=== PATIENT | female | born 1960 | race African-American/Black ===

== ENCOUNTER 2018-07-01 03:25 | Inpatient (IN) | payer MEDICAID ==
[~2018-07-01] VITALS: Ht 157.5 cm; Wt 99.3 kg
[2018-07-01] VITALS (7 sets, daily range): BP systolic 123–183; BP diastolic 63–90
[2018-07-01] MEDS ORDERED: ALBUTEROL (0.083%) 2.5MG/3ML NEB HHN STA ×2 (03:44→05:38)
[2018-07-01] MEDS ORDERED: IPRATROPIUM BROMIDE (0.02%) 0.5MG/2.5ML NEB HHN STA ×2 (03:44→05:38)
[2018-07-01] MEDS ORDERED: FUROSEMIDE 40MG/4ML VIAL IV ONE (03:45)
[2018-07-01] MEDS ORDERED: NITROGLYCERIN OINT 1GM/INCH UDPKT TD ONE (03:45)
[2018-07-01 04:27] LABS: CHLORIDE 105 mEq/L (98-107)
[2018-07-01 05:00] LABS: BASOPHILS % 0.6 % (0.0-2.0); LYMPHOCYTES % 51.4 % (20.0-50.0); MEAN CORPUSCULAR HEMOGLOBIN 21.5 pg (28.0-32.0); MEAN CORPUSCULAR VOLUME 73.7 fL (81.0-99.0); MEAN PLATELET VOLUME 8.2 fl (7.4-10.4); MONOCYTES % 7.3 % (2.0-8.0); NEUTROPHILS % 39.7 % (40.0-76.0); PLATELET 143 x1000/uL (130-400); RED BLOOD CELL COUNT 2.49 mill/uL (4.2-5.4); RED CELL DISTRIBUTION WIDTH 23.1 % (11.6-14.6)
[2018-07-01 05:40] LABS: HEMATOCRIT. 18.4 % (36.0-48.0); HEMOGLOBIN. 5.4 g/dL (12.0-16.0)
[2018-07-01] MEDS ORDERED: HYDROCODONE/ACETAMINOPHEN 5/325MG TABLET PO NR (06:00)
[2018-07-01 07:29] LABS: PLATELET ESTIMATE NORMAL
[2018-07-01] MEDS ORDERED: CLONIDINE 0.1MG TABLET PO PRN (12:45)
[2018-07-01] MEDS ORDERED: MAGNESIUM/ALUMINUM HYDROXIDE/SIMETHICONE 30ML UDC PO PRN (12:45)
[2018-07-01] MEDS ORDERED: ACETAMINOPHEN 325MG TABLET PO PRN (12:45)
[2018-07-01] MEDS ORDERED: IPRATROPIUM/ALBUTEROL 0.5-3(2.5)MG/3ML NEB INH PRN (12:45)
[2018-07-01] MEDS ORDERED: NA PHOS,M-B/NA PHOS,DI-BA ENEMA 118ML PR PRN (12:45)
[2018-07-01] MEDS ORDERED: DOCUSATE SODIUM 100MG CAPSULE PO PRN (12:45)
[2018-07-01] MEDS ORDERED: ZOLPIDEM TARTRATE 5MG TABLET PO PRN (12:45)
[2018-07-01] MEDS ORDERED: LORAZEPAM 0.5MG TABLET PO PRN (12:45)
[2018-07-01] MEDS ORDERED: ONDANSETRON HCL 4MG/2ML INJ IV PRN (12:45)
[2018-07-01] MEDS ORDERED: GUAIFENESIN 200MG/10ML SUGAR FREE UDC PO PRN (12:45)
[2018-07-01] MEDS ORDERED: PANTOPRAZOLE 80 MG in SODIUM CHLORIDE 0.9% 100 ML IV SCH (14:00)
[2018-07-01] MEDS: FUROSEMIDE 100MG/10ML VIAL IVP SCH (14:17)
[2018-07-01] MEDS: DEXT 5%/LACTATED RINGERS 1,000 ML IV SCH (14:34)
[2018-07-01] MEDS: PANTOPRAZOLE SODIUM 40 MG/VIAL IV SCH (16:48)
[2018-07-01] MEDS: TRAMADOL 50MG TABLET PO PRN (20:38)
[2018-07-01] MEDS: CARVEDILOL 3.125 MG TABLET PO SCH (22:14)
[2018-07-01 23:47] LABS: HEMATOCRIT 22.7 % (36.0-48.0)
[2018-07-01 23:53] LABS: INR 1.5; PARTIAL THROMBOPLASTIN TIME 27.4 sec (23.4-31.0); PROTHROMBIN TIME 15.2 sec (9.1-11.1)
[2018-07-02] VITALS (11 sets, daily range): BP systolic 115–147; BP diastolic 68–87
[2018-07-02 00:02] LABS: CREATINE KINASE MB FRACTION 2.2 ng/mL (0.5-3.6)
[2018-07-02 00:36] LABS: FOLIC ACID (FOLATE) SERUM 15.4 ng/mL (>5.38)
[2018-07-02] MEDS: FUROSEMIDE 100MG/10ML VIAL IVP SCH (02:19)
[2018-07-02] MEDS: DEXT 5%/LACTATED RINGERS 1,000 ML IV SCH ×2 (02:24→13:28)
[2018-07-02 07:13] LABS: BASOPHILS % 0.6 % (0.0-2.0); EOSINOPHILS % 2.4 % (0.0-5.0); HEMATOCRIT. 27.2 % (36.0-48.0); HEMOGLOBIN. 8.5 g/dL (12.0-16.0); LYMPHOCYTES % 57.7 % (20.0-50.0); MEAN CORPUSCULAR HEMOGLOBIN 23.7 pg (28.0-32.0); MEAN CORPUSCULAR VOLUME 75.4 fL (81.0-99.0); MEAN PLATELET VOLUME 8.4 fl (7.4-10.4); MONOCYTES % 6.1 % (2.0-8.0); NEUTROPHILS % 33.2 % (40.0-76.0); PLATELET 124 x1000/uL (130-400); RED BLOOD CELL COUNT 3.61 mill/uL (4.2-5.4)
[2018-07-02 07:17] LABS: CHLORIDE 102 mEq/L (98-107)
[2018-07-02 07:20] LABS: INR 1.5; PARTIAL THROMBOPLASTIN TIME 25.7 sec (23.4-31.0); PROTHROMBIN TIME 14.5 sec (9.1-11.1)
[2018-07-02 07:22] LABS: TOTAL IRON BINDING CAPACITY 511 ug/dL (250-450)
[2018-07-02] MEDS: CARVEDILOL 3.125 MG TABLET PO SCH ×2 (08:57→21:10)
[2018-07-02] MEDS: BISACODYL 5MG TABLET PO SCH ×3 (08:57→17:48)
[2018-07-02] MEDS: PANTOPRAZOLE SODIUM 40 MG/VIAL IV SCH ×2 (08:57→16:03)
[2018-07-02] MEDS: SORBITOL 70% SOLN 30ML PO SCH ×3 (08:58→21:10)
[2018-07-02] MEDS: TRAMADOL 50MG TABLET PO PRN ×2 (09:06→17:48)
[2018-07-02] MEDS: METOCLOPRAMIDE HCL 10MG/2ML VIAL IV SCH ×3 (13:28→23:56)
[2018-07-02] MEDS ORDERED: KCL 20MEQ/100ML PREMIX 100 ML IV NR (14:00)
[2018-07-02] MEDS: FUROSEMIDE 40MG/4ML VIAL IVP SCH (16:04)
[2018-07-02 16:58] LABS: *AMPHETAMINES SCREEN URINE NEGATIVE (NEGATIVE); *BARBITURATES SCREEN URINE NEGATIVE (NEGATIVE); *BENZODIAZEPINES SCREEN URINE NEGATIVE (NEGATIVE); *COCAINE SCREEN URINE NEGATIVE (NEGATIVE); CANNABINOID URINE SCREEN NEGATIVE (NEGATIVE); METHADONE URINE SCREEN NEGATIVE (NEGATIVE); OPIATES URINE SCREEN NEGATIVE (NEGATIVE)
[2018-07-02 16:59] LABS: PHENCYCLIDINE URINE SCREEN NEGATIVE (NEGATIVE)
[2018-07-02 19:38] LABS: CHLORIDE 101 mEq/L (98-107)
[2018-07-02 20:24] LABS: HEMATOCRIT 28.2 % (36.0-48.0); HEMOGLOBIN 8.8 g/dL (12.0-16.0)
[2018-07-03] VITALS: BP 115/68
[2018-07-03] MEDS: TRAMADOL 50MG TABLET PO PRN ×2 (00:01→21:56)
[2018-07-03 04:00] VITALS: BP 119/76
[2018-07-03] MEDS: DEXT 5%/LACTATED RINGERS 1,000 ML IV SCH (04:25)
[2018-07-03 08:00] VITALS: BP 123/71
[2018-07-03] MEDS ORDERED: POTASSIUM CHLORIDE 20MEQ TABLET SR PO NR (08:23)
[2018-07-03] MEDS ORDERED: PHYTONADIONE 10MG/ML AMP SUBCUT NR (08:24)
[2018-07-03] MEDS: PANTOPRAZOLE SODIUM 40 MG/VIAL IV SCH ×2 (08:46→17:05)
[2018-07-03] MEDS: FUROSEMIDE 40MG/4ML VIAL IVP SCH ×2 (08:46→17:04)
[2018-07-03] MEDS: CARVEDILOL 3.125 MG TABLET PO SCH ×2 (08:48→21:00)
[2018-07-03] MEDS ORDERED: METOCLOPRAMIDE HCL 10MG/2ML VIAL IV SCH (09:00)
[2018-07-03 10:06] LABS: CREATINE KINASE MB FRACTION 1.2 ng/mL (0.5-3.6)
[2018-07-03] MEDS: DEXT 5%/0.45% NACL KCL 20MEQ/L 1,000 ML IV SCH (10:17)
[2018-07-03 10:24] LABS: HEMATOCRIT. 27.9 % (36.0-48.0); HEMOGLOBIN. 8.4 g/dL (12.0-16.0); MEAN CORPUSCULAR HEMOGLOBIN 23.2 pg (28.0-32.0); MEAN CORPUSCULAR VOLUME 76.7 fL (81.0-99.0); PLATELET 131 x1000/uL (130-400); RED BLOOD CELL COUNT 3.63 mill/uL (4.2-5.4); RED CELL DISTRIBUTION WIDTH 26.7 % (11.6-14.6)
[2018-07-03 10:28] LABS: INR 1.4; PARTIAL THROMBOPLASTIN TIME 24.9 sec (23.4-31.0)
[2018-07-03 10:51] LABS: PLATELET ESTIMATE NORMAL
[2018-07-03 11:50] LABS: CHLORIDE 104 mEq/L (98-107)
[2018-07-03 11:58] LABS: PHOSPHORUS 4.6 mg/dL (2.5-4.9)
[2018-07-03 12:00] VITALS: BP 117/78
[2018-07-03] MEDS ORDERED: MAGNESIUM 2 G PREMIX 50 ML IV NR (12:00)
[2018-07-03] MEDS ORDERED: FENTANYL CITRATE/PF 50MCG/ML 2ML VIAL IV PRN (13:00)
[2018-07-03] MEDS ORDERED: PROPOFOL 200MG/20ML VIAL IV ONE ×2 (13:05→15:18)
[2018-07-03] MEDS ORDERED: LIDOCAINE HCL/PF 1% 10 MG/ML 5ML VIAL ONE (13:05)
[2018-07-03] MEDS ORDERED: MIDAZOLAM HCL 5 MG/5 ML VIAL ONE (13:06)
[2018-07-03] MEDS ORDERED: SIMETHICONE 40 MG/0.6 ML 30ML ONE (14:44)
[2018-07-03 16:44] VITALS: BP 131/83
[2018-07-03 20:00] VITALS: BP 101/56
[2018-07-04 00:03] VITALS: BP 98/56
[2018-07-04 04:00] VITALS: BP 119/61
[2018-07-04] MEDS ORDERED: PHYTONADIONE 10MG/ML AMP SUBCUT NR (05:00)
[2018-07-04 08:00] VITALS: BP 124/80
[2018-07-04] MEDS: PANTOPRAZOLE SODIUM 40 MG/VIAL IV SCH ×2 (09:08→16:39)
[2018-07-04] MEDS: CARVEDILOL 3.125 MG TABLET PO SCH ×4 (09:08→22:14)
[2018-07-04] MEDS: DEXT 5%/0.45% NACL KCL 20MEQ/L 1,000 ML IV SCH (09:27)
[2018-07-04] MEDS: FUROSEMIDE 40MG/4ML VIAL IVP SCH (09:27)
[2018-07-04] MEDS ORDERED: MAGNESIUM 2 G PREMIX 50 ML IV NR (11:00)
[2018-07-04 12:00] VITALS: BP_SYST 113; BP_SYST 122; BP_DIAS 75; BP_DIAS 77
[2018-07-04 12:27] LABS: BASOPHILS % 0.4 % (0.0-2.0); EOSINOPHILS % 2.4 % (0.0-5.0); HEMATOCRIT. 27.8 % (36.0-48.0); HEMOGLOBIN. 8.6 g/dL (12.0-16.0); LYMPHOCYTES % 51.2 % (20.0-50.0); MEAN CORPUSCULAR HEMOGLOBIN 23.5 pg (28.0-32.0); MEAN CORPUSCULAR VOLUME 75.9 fL (81.0-99.0); MEAN PLATELET VOLUME 8.4 fl (7.4-10.4); MONOCYTES % 6.3 % (2.0-8.0); NEUTROPHILS % 39.7 % (40.0-76.0); PLATELET 136 x1000/uL (130-400); RED BLOOD CELL COUNT 3.66 mill/uL (4.2-5.4); RED CELL DISTRIBUTION WIDTH 28.2 % (11.6-14.6)
[2018-07-04 12:29] LABS: INR 1.3; PROTHROMBIN TIME 12.7 sec (9.1-11.1)
[2018-07-04 12:44] LABS: CHLORIDE 100 mEq/L (98-107)
[2018-07-04] MEDS ORDERED: BARIUM SULFATE(VOLUMEN) 450 ML ORAL.SUSP ONE (12:54)
[2018-07-04] MEDS ORDERED: IOHEXOL-350 100 ML BOTTLE ONE (14:14)
[2018-07-04 16:17] LABS: HEMATOCRIT 27.7 % (36.0-48.0); HEMOGLOBIN 8.7 g/dL (12.0-16.0); MEAN CORPUSCULAR HEMOGLOBIN 23.6 pg (28.0-32.0); MEAN CORPUSCULAR VOLUME 75.6 fL (81.0-99.0); PLATELET 136 x1000/uL (130-400); RED BLOOD CELL COUNT 3.67 mill/uL (4.2-5.4); RED CELL DISTRIBUTION WIDTH 28.1 % (11.6-14.6)
[2018-07-04 16:31] LABS: CHLORIDE 97 mEq/L (98-107)
[2018-07-04 16:32] VITALS: BP 113/75
[2018-07-04 16:35] LABS: ETHANOL BLOOD < 10 mg/dL
[2018-07-04 20:00] VITALS: BP 123/74
[2018-07-04] MEDS: TRAMADOL 50MG TABLET PO PRN (22:13)
[2018-07-05] VITALS: BP 132/57
[2018-07-05 04:00] VITALS: BP 113/71
[2018-07-05] MEDS: DEXT 5%/0.45% NACL KCL 20MEQ/L 1,000 ML IV SCH (04:15)
[2018-07-05] MEDS: CARVEDILOL 3.125 MG TABLET PO SCH ×2 (05:24→09:04)
[2018-07-05 07:18] LABS: BASOPHILS % 0.5 % (0.0-2.0); EOSINOPHILS % 3.1 % (0.0-5.0); HEMATOCRIT. 25.7 % (36.0-48.0); LYMPHOCYTES % 56.7 % (20.0-50.0); MEAN CORPUSCULAR HEMOGLOBIN 23.6 pg (28.0-32.0); MEAN CORPUSCULAR VOLUME 76.1 fL (81.0-99.0); MEAN PLATELET VOLUME 8.7 fl (7.4-10.4); MONOCYTES % 8.3 % (2.0-8.0); NEUTROPHILS % 31.4 % (40.0-76.0); PLATELET 119 x1000/uL (130-400); RED BLOOD CELL COUNT 3.37 mill/uL (4.2-5.4); RED CELL DISTRIBUTION WIDTH 28.2 % (11.6-14.6)
[2018-07-05 07:43] LABS: CHLORIDE 101 mEq/L (98-107)
[2018-07-05 08:00] VITALS: BP 124/65
[2018-07-05] MEDS: PANTOPRAZOLE SODIUM 40 MG/VIAL IV SCH (09:04)
[2018-07-05 12:00] VITALS: BP 112/71
[2018-07-05 12:38] VITALS: BP 112/71
== END 2018-07-05 13:15 | disposition home or self-care (01) | DRG 133 ==
LOC: ER 04:23 → 8WST 05:46 → EDBEDREQTM 05:54 → EDBEDREQ 05:54 → ENRESERV 10:13
PROVIDERS: ADMIT Internal Medicine; ATTEND Internal Medicine
PROC: 30233N1 Transfusion of Nonautologous Red Blood Cells into Peripheral Vein, Percutaneous Approach (ICD-10-PCS; 2018-07-01)
PROC: 0DJD8ZZ Inspection of Lower Intestinal Tract, Via Natural or Artificial Opening Endoscopic (ICD-10-PCS; principal; 2018-07-03)
PROC: 0DB68ZX Excision of Stomach, Via Natural or Artificial Opening Endoscopic, Diagnostic (ICD-10-PCS; 2018-07-05)
DX: J96.00 Acute respiratory failure, unspecified whether with hypoxia or hypercapnia (principal); I50.41 Acute combined systolic (congestive) and diastolic (congestive) heart failure; I47.2 Ventricular tachycardia; E46 Unspecified protein-calorie malnutrition; K29.71 Gastritis, unspecified, with bleeding; D69.6 Thrombocytopenia, unspecified; D62 Acute posthemorrhagic anemia; E83.51 Hypocalcemia; E87.1 Hypo-osmolality and hyponatremia; I31.3 Pericardial effusion (noninflammatory); I42.0 Dilated cardiomyopathy; K70.30 Alcoholic cirrhosis of liver without ascites; D50.9 Iron deficiency anemia, unspecified; E87.6 Hypokalemia; K80.80 Other cholelithiasis without obstruction; Z68.39 Body mass index [BMI] 39.0-39.9, adult; F10.10 Alcohol abuse, uncomplicated; F17.210 Nicotine dependence, cigarettes, uncomplicated; I11.0 Hypertensive heart disease with heart failure; I50.43 Acute on chronic combined systolic (congestive) and diastolic (congestive) heart failure; J44.9 Chronic obstructive pulmonary disease, unspecified; K80.20 Calculus of gallbladder without cholecystitis without obstruction; Z79.82 Long term (current) use of aspirin; Z98.891 History of uterine scar from previous surgery; Z71.6 Tobacco abuse counseling; K57.31 Diverticulosis of large intestine without perforation or abscess with bleeding
CPT/HCPCS: 36415; 71045; 74177; 76700; 80048; 80061; 80076; 80305; 82248; 82270; 82550; 82553; 82607; 82728; 82746; 82962; 83540; 83550; 83735; 83880; 84100; 84443; 84484; 85007; 85014; 85018; 85027; 85044; 85379; 86850; 86900; 86920; 88305; 88312; 88313; 93005; 93306; 93970; 94640; 96374; 99291; C1893; C9113; G0482; J1940; J2250; J2704; J2765; J3430; J3475; J3480; J3490; J7040; J7050; J7121; J7611; P9016; Q9967